=== PATIENT | male | born 1940 | race Caucasian/White ===

== ENCOUNTER → 2019-12-20 | Outpatient (CLI) | payer OTHER ==
[~2019-12-20] MED LIST: ALPRazolam 1MG TAB ONE
== END | disposition home or self-care (01) ==
LOC: RAD 12:23
PROVIDERS: ATTEND Internal Medicine
DX: M41.86 Other forms of scoliosis, lumbar region (principal); M12.88 Other specific arthropathies, not elsewhere classified, other specified site; M43.17 Spondylolisthesis, lumbosacral region; M47.816 Spondylosis without myelopathy or radiculopathy, lumbar region; M47.817 Spondylosis without myelopathy or radiculopathy, lumbosacral region; M47.815 Spondylosis without myelopathy or radiculopathy, thoracolumbar region; M51.25 Other intervertebral disc displacement, thoracolumbar region; M51.26 Other intervertebral disc displacement, lumbar region; M48.061 Spinal stenosis, lumbar region without neurogenic claudication
CPT/HCPCS: 72148

== ENCOUNTER 2021-06-30 04:52 | Inpatient (IN) | payer OTHER ==
[~2021-06-30] VITALS: Ht 198.1 cm; Wt 80.0 kg
[~2021-06-30 04:52] MED LIST changes: +ACET325T26 PO; -ALPRazolam 1MG TAB ONE; +APIX5TAB PO; +ATOR-2 PO; +ATOR40TA78 PO; +BISA10SU4 PR; +BUDE10.2 HHN; +DOCU-131 PO; +FINA5TAB4 PO; +HYDR-2214 PO; +IPRA4AER HHN; +MAGN400T26 PO; +MIRT-15 PO; +OMEP-376 PO; +POLY17PO5 PO; +POTA10TA31 PO; +TAMS-11 PO; +[UNRECOGNIZED DRUG - OTHER] PO
[2021-06-30] MEDS ORDERED: SODIUM CHLORIDE FLUSH 10ML SYR IVF ONE (05:30)
--- NOTE | 2021-06-30 05:44 | NUR ---
PT TRANSPORTED TO IMAGING AT THIS TIME
[2021-06-30 06:40] LABS: ALBUMIN 3.3 g/dL (3.4-5.0); ANION GAP 8 mmol/L (5-15); CALCIUM 9.2 mg/dL (8.5-10.1); CHLORIDE 110 mmol/L (98-107)
[2021-06-30 06:42] LABS: BASOPHILS % (AUTO) 1 % (0-1); CREATININE 0.81 mg/dL (0.7-1.3); EOSINOPHILS % (AUTO) 4 % (1-7); LYMPHOCYTES % (AUTO) 20 % (22-44); MEAN CORPUSCULAR HEMOGLOBIN 32.5 pg (27.5-34.5); MEAN CORPUSCULAR HGB CONC 34.3 g/dL (33.2-36.2); MEAN PLATELET VOLUME 9.7 fL (7.4-10.4); MONOCYTES % (AUTO) 7 % (2-9); NEUTROPHILS % (AUTO) 68 % (42-75); PLATELET COUNT 188 x10^3/uL (130-400); RED BLOOD COUNT 5.41 x10^6/uL (4.38-5.82)
--- NOTE | 2021-06-30 06:53 | NUR ---
REPORT TO CHARLES STEWART NO FURTHER QUESTIONS AT THIS TIME.
--- NOTE | 2021-06-30 07:10 | NUR ---
PT RESTING CALMLY IN BED AT THIS TIME. PT ASKING ABOUT GOING HOME. PT INFORMED A DECISION HAS NOT BEEN MADE YET WHETHER HE WILL BE ADMITTED. WILL CONTINUE TO MONITOR.
[2021-06-30 07:43] LABS: INTERNATIONAL NORMALIZED RATIO 1.13 (0.93-1.1)
--- NOTE | 2021-06-30 09:46 | NUR ---
PT PLACED IN HOSPITAL GOWN. PT WAS AVOIDING PUTTING ON A GOWN BECAUSE HE WAS HOPING TO GO HOME. PT REPOSITIONED IN BED FOR COMFORT.
[2021-06-30] MEDS ORDERED: TAMSULOSIN 0.4 MG CAP.ER.24H ONE (10:04)
[2021-06-30] MEDS ORDERED: APIXABAN 5 MG TABLET ONE (10:05)
[2021-06-30] MEDS ORDERED: DOCUSATE 100 MG CAPSULE PO PRN (10:30)
[2021-06-30] MEDS ORDERED: ONDANSETRON ODT 4 MG PO PRN (10:30)
[2021-06-30] MEDS ORDERED: ENALAPRILAT 1.25 MG/ML, 2ML IVPush PRN (10:30)
[2021-06-30] MEDS ORDERED: MELATONIN 5 MG TABLET PO PRN (10:30)
--- NOTE | 2021-06-30 10:40 | NUR ---
REPORT CALLED TO JAZZMINE SOTO
--- NOTE | 2021-06-30 10:50 | NUR ---
PT MEDICATED PER EMAR. REQUEST SENT TO PHARMACY FOR MED. PT STATED HE NEEDS HIS INHALORS. HOSPITALIST CALLED TO REQUEST PT HOE MEDS.
[2021-06-30] MEDS: APIXABAN 5 MG TABLET PO SCH ×2 (10:56→20:57)
[2021-06-30] MEDS: TAMSULOSIN 0.4 MG CAP.ER.24H PO SCH (10:57)
[2021-06-30] MEDS ORDERED: ALBUTEROL-IPRATROPIUM MDI INH INH PRN (11:00)
[2021-06-30 12:16] VITALS: BP 120/69
[2021-06-30] MEDS: FLUTICASONE/VILANTEROL 200-25MCG/INH INH SCH (14:01)
[2021-06-30] MEDS: FINASTERIDE 5 MG TABLET PO SCH (15:18)
[2021-06-30] MEDS: METOPROLOL TARTRATE 25 MG TAB PO SCH (18:20)
[2021-06-30 18:36] VITALS: BP 115/73
[2021-06-30] MEDS ORDERED: SODIUM CHLORIDE 0.9% 1,000 ML IV SCH (19:30)
[2021-06-30 19:48] LABS: TROPONIN I < 0.015 ng/mL (0.000-0.045)
[2021-06-30 20:28] LABS: MICROSCOPIC NOT IND
[2021-06-30] MEDS: ACETAMINOPHEN 325 MG TABLET PO PRN (20:57)
[2021-06-30] MEDS: ATORVASTATIN 40 MG TABLET PO SCH (20:57)
[2021-07-01] VITALS (7 sets, daily range): BP systolic 99–123; BP diastolic 59–79
[2021-07-01] MEDS: ACETAMINOPHEN 325 MG TABLET PO PRN ×3 (02:22→21:55)
[2021-07-01] MEDS: METOPROLOL TARTRATE 25 MG TAB PO SCH ×2 (02:31→09:11)
[2021-07-01] MEDS: TAMSULOSIN 0.4 MG CAP.ER.24H PO SCH (09:10)
[2021-07-01] MEDS: APIXABAN 5 MG TABLET PO SCH ×2 (09:11→20:14)
[2021-07-01] MEDS: FINASTERIDE 5 MG TABLET PO SCH (09:11)
[2021-07-01] MEDS: FLUTICASONE/VILANTEROL 200-25MCG/INH INH SCH (09:16)
[2021-07-01] MEDS ORDERED: DIGOXIN 0.25 MG/ML, 2ML IVPush ONE (12:00)
[2021-07-01] MEDS: METOPROLOL TARTRATE 50 MG TAB PO SCH (17:58)
[2021-07-01] MEDS: ATORVASTATIN 40 MG TABLET PO SCH (20:14)
[2021-07-02 00:50] VITALS: BP 114/72
[2021-07-02] MEDS: ACETAMINOPHEN 325 MG TABLET PO PRN ×2 (03:16→09:56)
[2021-07-02 05:59] VITALS: BP 116/78
[2021-07-02] MEDS: METOPROLOL TARTRATE 50 MG TAB PO SCH (06:00)
[2021-07-02 07:05] VITALS: BP 114/79
[2021-07-02] MEDS ORDERED: METO50TA82 PO (08:29)
[2021-07-02] MEDS ORDERED: DIGO125T85 PO (08:29)
[2021-07-02] MEDS: TAMSULOSIN 0.4 MG CAP.ER.24H PO SCH (08:42)
[2021-07-02] MEDS: APIXABAN 5 MG TABLET PO SCH (08:42)
[2021-07-02] MEDS: FINASTERIDE 5 MG TABLET PO SCH (08:42)
[2021-07-02] MEDS: FLUTICASONE/VILANTEROL 200-25MCG/INH INH SCH (08:43)
[2021-07-02] MEDS ORDERED: DIGOXIN 0.125 MG TABLET PO SCH (09:00)
[2021-07-02 13:48] VITALS: BP 112/68
== END 2021-07-02 14:08 | disposition home health service (06) | DRG 308 ==
LOC: ED 07:00 → 3N 08:40 → ED 12:10 → OBSVTOIN 18:55 → 4WST 20:58
PROVIDERS: ADMIT Hospitalist; ATTEND Hospitalist
DX: I48.92 Unspecified atrial flutter (principal); E43 Unspecified severe protein-calorie malnutrition; D68.59 Other primary thrombophilia; I48.91 Unspecified atrial fibrillation; Z79.01 Long term (current) use of anticoagulants; F17.210 Nicotine dependence, cigarettes, uncomplicated; I10 Essential (primary) hypertension; J43.9 Emphysema, unspecified; M48.061 Spinal stenosis, lumbar region without neurogenic claudication; N40.0 Benign prostatic hyperplasia without lower urinary tract symptoms; M25.461 Effusion, right knee; S76.011A Strain of muscle, fascia and tendon of right hip, initial encounter; Z96.641 Presence of right artificial hip joint; W18.39XA Other fall on same level, initial encounter; Y93.89 Activity, other specified; Y92.89 Other specified places as the place of occurrence of the external cause; Y99.8 Other external cause status; Z88.5 Allergy status to narcotic agent; Z68.20 Body mass index [BMI] 20.0-20.9, adult
CPT/HCPCS: 36415; 71045; 80048; 81003; 82040; 83735; 84484; 85025; 85610; 85730; 93005; 99285; G0378; J1160; J7030